=== PATIENT | female | born 1945 | race Caucasian/White ===

== ENCOUNTER 2018-05-28 09:05 | Day surgery (SDC) | payer MEDICARE, OTHER ==
[2018-05-28] MEDS ORDERED: PROPOFOL 60 ML (10:16)
[2018-05-28] MEDS ORDERED: LIDOCAINE 2% (SDV) 5 ML INJ (10:16)
== END 2018-05-28 11:00 | disposition home or self-care (01) ==
LOC: GIL 09:05
DX: Z12.11 Encounter for screening for malignant neoplasm of colon (principal); K29.30 Chronic superficial gastritis without bleeding; K57.90 Diverticulosis of intestine, part unspecified, without perforation or abscess without bleeding; K64.8 Other hemorrhoids; I10 Essential (primary) hypertension
CPT/HCPCS: 43239; 88305; 88312